=== PATIENT | female | born 1980 | race Caucasian/White ===

== ENCOUNTER 2020-08-15 09:49 | Emergency (ER) | payer OTHER ==
[2020-08-15 09:53] VITALS: RESP 16
[2020-08-15] MEDS ORDERED: HYDROmorphone 1 MG/ML 1 ML SYRINGE IVP STA (10:06)
[2020-08-15] MEDS ORDERED: SODIUM CHLORIDE 0.9% 500 ML 500 ML IV ONE (10:06)
[2020-08-15] MEDS ORDERED: PIPERACILLIN-TAZOBACTAM 3.375 GM in SODIUM CHLORIDE 0.9% 100 ML IVPB STA (10:06)
[2020-08-15] MEDS ORDERED: VANCOMYCIN IV PER PHARMACY 1 EACH MISC MISCELLANE PRN (10:06)
[2020-08-15] MEDS ORDERED: SODIUM CHLORIDE 0.9% 1,000 ML IV ONE (10:06)
[2020-08-15] MEDS ORDERED: VANCOMYCIN 1,500 MG in SODIUM CHLORIDE 0.9% 250 ML IVPB ONE (10:30)
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
[2020-08-15] MEDS: SODIUM CHLORIDE 0.9% 1,000 ML IV SCH ×2 (10:36→18:30)
[2020-08-15 10:41] LABS: Basophils # (A) 0.1 k/uL (0-0.2); Basophils % (A) 1 %; Eosinophils # (A) 0.5 k/uL (0-0.7); Eosinophils % (A) 6 %; HCT 30.2 % (34.0-46.0); HGB 9.7 gm/dL (11.4-16.0); Hypochromasia Moderate; Lymphocytes # (A) 1.3 k/uL (1.0-4.8); Lymphocytes % (A) 15 %; MCH 29.7 pg (25.0-35.0); MCHC 32.2 g/dL (31.0-37.0); MCV 92.3 fL (80.0-100.0); Mean Platelet Volume 7.1; Monocytes # (A) 0.4 k/uL (0-1.0); Monocytes % (A) 5 %; Neutrophils # (A) 5.8 k/uL (1.3-7.7); Neutrophils % (A) 71 %; Platelet Count 612 k/uL (150-450); RBC 3.28 m/uL (3.80-5.40); RDW 14.7 % (11.5-15.5); WBC 8.2 k/uL (3.8-10.6)
[2020-08-15 10:51] LABS: ALT 24 U/L (4-34); AST 24 U/L (14-36); African American GFR (CKD) >90 (>60 ml/min/1.73 sqM); Alkaline Phosphatase 199 U/L (38-126); Anion Gap 6 mmol/L; Blood Urea Nitrogen 6 mg/dL (7-17); Calcium 9.4 mg/dL (8.4-10.2); Carbon Dioxide 24 mmol/L (22-30); Chloride 109 mmol/L (98-107); Glucose 114 mg/dL (74-99); Non-African American GFR(CKD) >90 (>60 ml/min/1.73 sqM); Potassium 3.9 mmol/L (3.5-5.1); Sodium 139 mmol/L (137-145); Total Bilirubin 0.5 mg/dL (0.2-1.3); Total Protein 6.2 g/dL (6.3-8.2)
[2020-08-15] MEDS ORDERED: HYDROmorphone 0.5 MG/0.5 ML SYRINGE IVP STA ×2 (13:08→13:29)
--- NOTE | 2020-08-15 13:14 | CT ---
EXAMINATION TYPE: CT lower extremity RT w con DATE OF EXAM: 08/15/2020 COMPARISON: None HISTORY: 40-year-old female postoperative infection TECHNIQUE: Contiguous axial scanning of the right hip and femur performed with IV Contrast, patient i njected with 100 mL of Isovue 300. Coronal/sagittal reconstructions performed. 3-D reconstructions ge nerated on a dedicated independent workstation. CT DLP: 1070.3 mGycm Automated exposure control for dose reduction was used. FINDINGS: There is amputation at the mid thigh level. Abnormal heterotopic ossification forming distal and post erior to the osteotomy site. There is periostitis and early cortical erosion at the osteotomy site. There is fluid directly contacting the osteotomy site extending posteriorly measuring up to 4.1 cm AP by 6.1 cm wide by 3.0 cm craniocaudal. There is extensive soft tissue ulceration involving the stump and underlying extensive phlegmon and s maller abscesses are difficult to exclude. There is a abscess also noted measuring 3.0 x 1.2 x 1.1 cm in the lateral stump soft tissues, coronal image 19. IMPRESSION: 1. RIGHT LOWER EXTREMITY AMPUTATION AT THE MID THIGH LEVEL. SOFT TISSUE ULCERATION OF THE STUMP END W ITH UNDERLYING EXTENSIVE MYOSITIS AND PHLEGMONOUS CHANGE. 2. ABSCESS DIRECTLY CONTACTING THE OSTEOTOMY SITE EXTENDING POSTERIORLY MEASURING 6.1 X 4.1 X 3.0 CM. ASSOCIATED HETEROTOPIC OSSIFICATION. 3. ADDITIONAL EVIDENCE FOR OSTEOMYELITIS AT THE OSTEOTOMY SITE. 4. SMALLER DISCRETE ABSCESS MEASURING 3.0 CM IN THE LATERAL STUMP SOFT TISSUES, CORONAL IMAGE 19.
--- NOTE | 2020-08-15 13:30 | CT ---
EXAMINATION TYPE: CT lower extremity LT w con DATE OF EXAM: 08/15/2020 COMPARISON: None HISTORY: 40-year-old female postoperative infection TECHNIQUE: Contiguous axial scanning of the entire left lower extremity performed with IV Contrast, p atient injected with 100 mL of Isovue 300. Coronal/sagittal reconstructions performed. 3-D reconstruc tions generated on a dedicated workstation. CT DLP: 2042.5 mGycm Automated exposure control for dose reduction was used. FINDINGS: Comminuted fracture proximal left femoral shaft traversed by antegrade intramedullary nail. 2 hip scr ews proximally and 2 distal interlocking screws are demonstrated. Generalized soft tissue swelling is present. Irregular periostitis and callus formation at the proximal third femur level. The metal hardware itse lf appears intact. Suspect some myositis ossificans of the piriformis and gluteus medius musculature. The 2 distal interlocking screws have extensive heterotopic ossification forming medially at the scre w tips. No discrete abscess is identified. Extensive soft tissue swelling continues throughout the leg with comminuted segmental fracture of the tibial shaft fixated by antegrade intramedullary nail. 2 proximal and 3 distal interlocking screws a re present. Callus formation is demonstrated both at the proximal tibial shaft and the comminuted fra cture of the fibular head and neck. Suspect fluid measuring 2.4 x 1.8 x 1.1 cm within the medial soft tissues at the distal leg level jus t above the distal interlocking screws and contacting the underlying distal tibial fracture site (axi al image 245 and sagittal image 43). Small foci of soft tissue air are also present here, axial image 243. Soft tissue edema extends into the foot. IMPRESSION: 1. INTRAMEDULLARY NAIL FIXATING THE COMMINUTED FRACTURE OF THE PROXIMAL FEMORAL SHAFT. THERE IS PROMI NENT IRREGULAR PERIOSTITIS AT THE PROXIMAL FRACTURE SITE WHICH SHOULD BE MONITORED FOR APPROPRIATE HE ALING AND TO EXCLUDE INFECTION. PROMINENT MYOSITIS OSSIFICANS AT THE TIPS OF THE 2 DISTAL INTERLOCKI NG SCREWS. ADDITIONAL SCATTERED MYOSITIS OSSIFICANS INVOLVING THE PIRIFORMIS AND GLUTEUS MEDIUS. 2. ADDITIONAL ANTEGRADE INTRAMEDULLARY NAILING ACROSS THE COMMINUTED SEGMENTAL FRACTURE OF THE TIBIA. THERE IS A 2.4 CM SUSPECTED ABSCESS IN THE MEDIAL SOFT TISSUES AT THE DISTAL LEG LEVEL JUST ABOVE TH E DISTAL INTERLOCKING SCREWS AND CONTACTING THE UNDERLYING DISTAL TIBIAL FRACTURE SITE. FOCI OF AIR A RE PRESENT WITHIN THE FLUID WELL. 3. DIFFUSE SOFT TISSUE SWELLING THROUGHOUT THE LOWER EXTREMITY. 4. MARKEDLY COMMINUTED FRACTURE OF THE FIBULAR HEAD AND NECK.
[2020-08-15] MEDS: HYDROmorphone 0.5 MG/0.5 ML SYRINGE IVP PRN ×2 (16:35→19:42)
[2020-08-15 18:30] VITALS: BP 122/87; PULSE 87; TEMP 98.7
[2020-08-15] MEDS ORDERED: VANCOMYCIN 1,250 MG in SODIUM CHLORIDE 0.9% 250 ML IVPB SCH (20:00)
== END 2020-08-15 20:19 ==
LOC: EC 09:49
DX: Z03.818 Encounter for observation for suspected exposure to other biological agents ruled out (principal); T81.40XA Infection following a procedure, unspecified, initial encounter; I96 Gangrene, not elsewhere classified; E87.2 Acidosis; L02.416 Cutaneous abscess of left lower limb; M60.9 Myositis, unspecified; F17.200 Nicotine dependence, unspecified, uncomplicated; Z79.899 Other long term (current) drug therapy; Z79.01 Long term (current) use of anticoagulants; Z89.611 Acquired absence of right leg above knee; Z86.14 Personal history of Methicillin resistant Staphylococcus aureus infection
CPT/HCPCS: 36415; 80053; 83605; 85025; 87040; 87635; 73701 ×2; 99285; 96365; 96367; 96375; 96376 ×2; 96361 ×5; J2543; J3370; J1170 ×2; Q9967

== ENCOUNTER → 2021-06-07 | Outpatient (CLI) | payer OTHER ==
[2021-06-07 15:02] LABS: Basophils # (A) 0.03 X 10*3/uL (0.00-0.10); Basophils % (A) 0.5 %; Eosinophils # (A) 0.15 X 10*3/uL (0.04-0.35); Eosinophils % (A) 2.4 %; HCT 38.2 % (37.2-46.3); HGB 12.2 g/dL (12.0-15.0); Lymphocytes # (A) 1.96 X 10*3/uL (0.90-5.00); Lymphocytes % (A) 31.7 %; MCH 27.4 pg (27.0-32.0); MCHC 31.9 g/dL (32.0-37.0); MCV 85.7 fL (80.0-97.0); Mean Platelet Volume 10.9 fL (9.5-12.2); Monocytes # (A) 0.44 X 10*3/uL (0.20-1.00); Monocytes % (A) 7.1 %; Neutrophils # (A) 3.58 X 10*3/uL (1.80-7.70); Platelet Count 273 X 10*3/uL (140-440); RBC 4.46 X 10*6/uL (4.10-5.20); RDW 14.1 % (11.5-14.5); WBC 6.18 X 10*3/uL (4.50-10.00)
[2021-06-07 18:35] LABS: African American GFR (CKD) 132.1 (60.0-200.0); Albumin 4.2 g/dL (3.8-4.9); Albumin/Globulin Ratio 1.5 (1.60-3.17); Anion Gap 15.8 mmol/L (4.00-12.00); BUN/Creat Ratio 17.17 Ratio (12.00-20.00); Blood Urea Nitrogen 10.3 mg/dL (9.0-27.0); Calcium 9.4 mg/dL (8.7-10.3); Carbon Dioxide 15.2 mmol/L (21.6-31.8); Globulin 2.8 g/dL (1.6-3.3); Potassium 4.3 mmol/L (3.5-5.5); Total Bilirubin 0.2 mg/dL (0.30-1.20)
[2021-06-08 15:15] LABS: HCV Qualitative Result DETECTED (Not detected); HCV Quant Log 5.13 (<1.08)
== END | disposition home or self-care (01) ==
LOC: LABWHC1 08:39
PROVIDERS: ATTEND Internal Medicine Gastroenterology
DX: B18.2 Chronic viral hepatitis C (principal)
CPT/HCPCS: 36415; 80053; 85025; 87522

== ENCOUNTER → 2021-06-09 | Outpatient (CLI) | payer OTHER ==
--- NOTE | 2021-06-09 08:27 | US ---
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 EXAM MEASUREMENTS: Liver Length: 13.9 cm Gallbladder Wall: 0.3 cm CBD: 0.1 cm Right Kidney: 9.3x5.2x4.6 cm Pancreas: wnl Liver: Slightly echogenic portals? Gallbladder: Small amount of sludge seen Evidence for sonographic Alexis's sign: No CBD: wnl Right Kidney: wnl IMPRESSION: Small amount of gallbladder sludge noted.
== END | disposition home or self-care (01) ==
LOC: RADUSWWP 07:44
PROVIDERS: ATTEND Internal Medicine Gastroenterology
DX: B18.2 Chronic viral hepatitis C (principal); K82.8 Other specified diseases of gallbladder
CPT/HCPCS: 76705

== ENCOUNTER → 2021-07-05 | Outpatient (CLI) | payer OTHER | END | disposition home or self-care (01) | LOC: LABWHC1 08:49 | PROVIDERS: ATTEND Nurse Practitioner Family | DX: B19.20 Unspecified viral hepatitis C without hepatic coma (principal) | CPT/HCPCS: 36415; 87522 ==

== ENCOUNTER → 2021-11-09 | Outpatient (CLI) | payer OTHER ==
[2021-11-09 19:06] LABS: Basophils # (A) 0.06 X 10*3/uL (0.00-0.10); Basophils % (A) 0.7 %; Eosinophils # (A) 0.16 X 10*3/uL (0.04-0.35); Eosinophils % (A) 1.9 %; HCT 43.5 % (37.2-46.3); HGB 13.6 g/dL (12.0-15.0); Immature Grans, Automated 0.2 %; Lymphocytes # (A) 2.61 X 10*3/uL (0.90-5.00); Lymphocytes % (A) 31.3 %; MCHC 31.3 g/dL (32.0-37.0); MCV 86.5 fL (80.0-97.0); Mean Platelet Volume 11.4 fL (9.5-12.2); Monocytes # (A) 0.52 X 10*3/uL (0.20-1.00); Monocytes % (A) 6.2 %; NRBC Per 100 WBC 0 /100 WBCS (0.0-0.0); Neutrophils # (A) 4.97 X 10*3/uL (1.80-7.70); Neutrophils % (A) 59.7 %; Platelet Count 252 X 10*3/uL (140-440); RBC 5.03 X 10*6/uL (4.10-5.20); RDW 14.2 % (11.5-14.5); WBC 8.34 X 10*3/uL (4.50-10.00)
[2021-11-09 20:05] LABS: African American GFR (CKD) 124.7 (60.0-200.0); Albumin 4.8 g/dL (3.8-4.9); Albumin/Globulin Ratio 1.6 (1.60-3.17); Anion Gap 14.6 mmol/L (10.00-18.00); BUN/Creat Ratio 15.71 Ratio (12.00-20.00); Carbon Dioxide 17.4 mmol/L (20.0-27.5); Non-African American GFR(CKD) 107.6 (60.0-200.0); Potassium 4.3 mmol/L (3.5-5.5); Total Bilirubin 0.3 mg/dL (0.30-1.20); Total Protein 7.8 g/dL (6.2-8.2)
== END | disposition home or self-care (01) ==
LOC: LABWHC1 12:11
PROVIDERS: ATTEND Internal Medicine Gastroenterology
DX: B18.2 Chronic viral hepatitis C (principal)
CPT/HCPCS: 36415; 80053; 85025; 87522